=== PATIENT | female | born 1975 | race Caucasian/White ===

== ENCOUNTER 2018-06-15 19:06 | Emergency (ER) | payer MEDICAID ==
[~2018-06-15] VITALS: Ht 165.1 cm; Wt 84.4 kg
--- NOTE | 2018-06-15 19:30 | NUR ---
ED Nurse Note: Pt walked in c/o n/v x 5 day, pt states she ate some bad nachos about 4-5 days ago but continued to have n/v, denies diarrhea. pt states her menstrual cycle started today and reports she has nausea at this time. pt AA&ox4, gcs=15, skin warm and dry, resp even and unlabored, +n, -v/d, ambulates w/ steady gait, will cont monitor.
--- NOTE | 2018-06-15 19:32 | Emergency Room Report ---
History of Present Illness General Chief Complaint: Vomiting Source: Patient Present Illness HPI This is a 43-year-old female complains of nausea and episodes of vomiting last 5 days. She denies any abdominal pain. She does complain of some vaginal spotting. She denies any urinary symptoms. No diarrhea. No fever. No exacerbating or relieving factor. Allergies: Coded Allergies: No Known Allergies (Unverified , 06/15/18) Patient History Past Medical History: none Past Surgical History: none Pertinent Family History: none Last Menstrual Period: 05/08/2018 Now: No : 3 Para: 2 Nursing Documentation-[facility] Past Medical History: No Stated History Review of Systems All Other Systems: negative except mentioned in HPI Physical Exam Vital Signs Date Time Temp Pulse Resp B/P (MAP) Pulse Ox O2 Delivery O2 Flow Rate FiO2 06/15/18 19:22 98.2 68 16 137/92 99 Room Air General Appearance: well appearing, no apparent distress Head: normocephalic, atraumatic ENT: hearing grossly normal, normal voice Neck: full range of motion, supple Respiratory: normal breath sounds, no respiratory distress, speaking full sentences Gastrointestinal: normal inspection, normal bowel sounds, non tender, soft, no peritonitis Musculoskeletal: normal inspection, back normal Neurologic: normal inspection, alert, oriented x3, responsive Skin: normal inspection, no rash Medical Decision Making Diagnostic Impression: Primary Impression: Vomiting ER Course Patient has had multiple bedside evaluations. Patient is nontoxic-appearing. The patient has no abdominal tenderness on my initial examination and repeat examination. She is afebrile. Metabolic abnormality was considered, unlikely after reviewing the patient's blood work. The patient was given Zofran and Reglan for her vomiting. She has improved. She is afebrile. Appendicitis was considered, unlikely. I also consider cholangitis, cholecystitis, pancreatitis , early . She has no vaginal bleeding. Laboratory Tests Test 06/15/18 14:33 06/15/18 19:41 Urine Color Pale yellow Urine Appearance Clear Urine pH 6.5 (4.5-8.0) Urine Specific [place] 1.000 (1.005-1.035) Urine Protein Negative (NEGATIVE) Urine Glucose (UA) Negative (NEGATIVE) Urine Ketones Negative (NEGATIVE) Urine Blood Negative (NEGATIVE) Urine Nitrite Negative (NEGATIVE) Urine Bilirubin Negative (NEGATIVE) Urine Urobilinogen Normal MG/DL (0.0-1.0) Urine Leukocyte Esterase Negative (NEGATIVE) White Blood Count 9.8 K/UL (4.8-10.8) Red Blood Count 4.51 M/UL (4.20-5.40) Hemoglobin 14.3 G/DL (12.0-16.0) Hematocrit 42.5 % (37.0-47.0) Mean Corpuscular Volume 94 FL (80-99) Mean Corpuscular Hemoglobin 31.6 PG (27.0-31.0) H Mean Corpuscular Hemoglobin Concent 33.6 G/DL (32.0-36.0) Red Cell Distribution Width 12.2 % (11.6-14.8) Platelet Count 595 K/UL (150-450) H Mean Platelet Volume 4.7 FL (6.5-10.1) L Neutrophils (%) (Auto) 51.7 % (45.0-75.0) Lymphocytes (%) (Auto) 37.1 % (20.0-45.0) Monocytes (%) (Auto) 7.1 % (1.0-10.0) Eosinophils (%) (Auto) 0.9 % (0.0-3.0) Basophils (%) (Auto) 3.2 % (0.0-2.0) H Sodium Level 138 MMOL/L (136-145) Potassium Level 3.8 MMOL/L (3.5-5.1) Chloride Level 101 MMOL/L (98-107) Carbon Dioxide Level 26 MMOL/L (21-32) Anion Gap 11 mmol/L (5-15) Blood Urea Nitrogen 6 mg/dL (7-18) L Creatinine 0.9 MG/DL (0.55-1.30) Estimate Glomerular Filtration Rate > 60 mL/min (>60) Glucose Level 108 MG/DL (74-106) H Calcium Level 9.5 MG/DL (8.5-10.1) Total Bilirubin 0.3 MG/DL (0.2-1.0) Aspartate Amino Transferase (AST) 9 U/L (15-37) L Alanine Aminotransferase (ALT) 12 U/L (12-78) Alkaline Phosphatase 68 U/L (46-116) Total Protein 7.0 G/DL (6.4-8.2) Albumin 3.6 G/DL (3.4-5.0) Globulin 3.4 g/dL Albumin/Globulin Ratio 1.1 (1.0-2.7) Lipase 95 U/L (73-393) Human Chorionic Gonadotropin, Quant < 1 mIU/mL (1-6) L Last Vital Signs Date Time Temp Pulse Resp B/P (MAP) Pulse Ox O2 Delivery O2 Flow Rate FiO2 06/15/18 19:22 98.2 68 16 137/92 99 Room Air Status: improved Disposition: HOME, SELF-CARE Condition: Improved Scripts Ondansetron (Zofran) 4 Mg Tablet 4 MG ORAL Q6H PRN for Nausea & Vomiting, #10 TAB Prov: VERONICA COTTON 06/15/18 Patient Instructions: Nausea and Vomiting, Adult VERONICA COTTON Jun 15, 2018 19:32
--- NOTE | 2018-06-15 19:40 | NUR ---
ED Nurse Note: blanket provided for comfort.
[2018-06-15 20:10] LABS: BASOPHILS % (AUTO) 3.2 % (0.0-2.0); EOSINOPHILS % (AUTO) 0.9 % (0.0-3.0); HEMATOCRIT 42.5 % (37.0-47.0); HEMOGLOBIN 14.3 G/DL (12.0-16.0); LYMPHOCYTES % (AUTO) 37.1 % (20.0-45.0); MEAN CORPUSCULAR VOLUME 94 FL (80-99); MONOCYTES % (AUTO) 7.1 % (1.0-10.0); NEUTROPHILS % (AUTO) 51.7 % (45.0-75.0); PLATELET COUNT 595 K/UL (150-450); RED BLOOD COUNT 4.51 M/UL (4.20-5.40); RED CELL DISTRIBUTION WIDTH 12.2 % (11.6-14.8); WHITE BLOOD COUNT 9.8 K/UL (4.8-10.8)
--- NOTE | 2018-06-15 20:10 | NUR ---
ED Nurse Note: pt vomiting at this time, only clear liquid, ermd notified.
[2018-06-15 20:14] LABS: ANION GAP 11 mmol/L (5-15); BLOOD UREA NITROGEN 6 mg/dL (7-18); CALCIUM 9.5 MG/DL (8.5-10.1); CARBON DIOXIDE 26 MMOL/L (21-32); CHLORIDE 101 MMOL/L (98-107); CREATININE 0.9 MG/DL (0.55-1.30); POTASSIUM 3.8 MMOL/L (3.5-5.1); SODIUM 138 MMOL/L (136-145)
[2018-06-15] MEDS ORDERED: Metoclopramide 10mg/2ml Inj IVP ONE (20:15)
[2018-06-15 20:19] LABS: ALANINE AMINOTRANSFERASE 12 U/L (12-78); ALBUMIN 3.6 G/DL (3.4-5.0); ALBUMIN/GLOBULIN RATIO 1.1 (1.0-2.7); ALKALINE PHOSPHATASE 68 U/L (46-116); ASPARTATE AMINO TRANSFERASE 9 U/L (15-37); BILIRUBIN,TOTAL 0.3 MG/DL (0.2-1.0)
[2018-06-15 20:21] LABS: APPEARANCE,URINE CLEAR; BILIRUBIN, URINE NEGATIVE (NEGATIVE); COLOR,URINE PALE YELLOW; GLUCOSE, URINE (UA) NEGATIVE (NEGATIVE); KETONES,URINE NEGATIVE (NEGATIVE); LEUKOCYTE ESTERASE ,URINE NEGATIVE (NEGATIVE); NITRITE,URINE NEGATIVE (NEGATIVE); PH,URINE 6.5 (4.5-8.0); PROTEIN,URINE NEGATIVE (NEGATIVE); UROBILINOGEN,URINE NORMAL MG/DL (0.0-1.0)
[2018-06-15 20:22] VITALS: BP 122/93
--- NOTE | 2018-06-15 20:47 | NUR ---
ED Nurse Note: pt reports nausea is better with medication, pt resting comfortably vss, nsr, o2sat 100% on RA, will cont monitor, spouse member at bedside. pt advised to notify staff if needed assist.
[2018-06-15 21:00] VITALS: BP 154/93
--- NOTE | 2018-06-15 21:10 | NUR ---
ED Nurse Note: pt currently sleeping, per ermd order, when pt wake up will try po eval.
[2018-06-15] MEDS ORDERED: ZOFRAN4 M1 ORAL (21:17)
--- NOTE | 2018-06-15 21:40 | NUR ---
ED Nurse Note: PO challenge done per ERMD order, pt tolerated well, no n/v. ERMD notified
--- NOTE | 2018-06-15 21:48 | NUR ---
ED Nurse Note: pt discharge instruction provided w/prescription, pt education done via discussion and handout, pt iv d/c and dressing applied, wristband removed, pt advised to follow up with pcp or return to ed if s/s worsen or new s/s develop. pt verbalized understanding and agrees with plan. pt ambulatory w/ steady gait, vss, airway intact, resp even and unlabored.
[2018-06-15 21:50] VITALS: BP 150/83
== END 2018-06-15 21:51 | disposition home or self-care (01) ==
LOC: EMR 19:56
DX: R11.2 Nausea with vomiting, unspecified (principal)
CPT/HCPCS: 36415; 80053; 81003; 83690; 84702; 85025; 96361; 96374; 96375; 99284; J2405; J2765

== ENCOUNTER 2019-11-01 17:02 | Emergency (ER) | payer MEDICAID ==
[~2019-11-01] VITALS: Ht 165.1 cm; Wt 86.2 kg
[~2019-11-01 17:02] MED LIST: ZOFRAN4 M1 ORAL
[2019-11-01 18:05] VITALS: BP 132/92
--- NOTE | 2019-11-01 18:47 | Emergency Room Report ---
History of Present Illness General Chief Complaint: Female Urogenital Problems Source: Patient (Hallie Segura) Present Illness HPI 44-year-old female with no significant past medical history here complaining of 2 weeks of vaginal bleeding and clotting. Patient reports that 4 months ago she had a biopsy done on left ovary and benign lesions were removed patient has not follow-up with [employer] since. Patient reports that her periods have always been irregular and patient did not have a period for 2 months. Patient never got it about a month ago however started spotting after. Patient took a home test which was positive and took it again 2 days later and it was negative. Patient also reports in the past 2 weeks she has been profusely bleeding clotting changing a tampon every hour. Denies any dizziness, syncope, headache, fatigue, chest pain, shortness of breath, and other associate symptoms. Denies diffuse abdominal pain. Denies nausea vomiting diarrhea. Sitting comfortably with stable vital signs. Is afebrile. Denies tobacco smoke , marijuana use, alcohol intake (Hallie Segura) Allergies: Coded Allergies: No Known Allergies (Unverified , 06/15/18) COVID-19 Screening Contact w/high risk pt: No Recent Travel to affected area: No Experienced COVID-19 symptoms?: No COVID-19 Testing performed [employer]: No (Hallie Segura) Patient History Past Medical History: see triage record Past Surgical History: none Pertinent Family History: none Last Menstrual Period: now Now: No Immunizations: UTD Reviewed Nursing Documentation: PMH: Agreed; PSxH: Agreed (Hallie Segura) Nursing Documentation-PMH Past Medical History: No Stated History (Hallie Segura) Review of Systems All Other Systems: negative except mentioned in HPI (Hallie Segura) Physical Exam Vital Signs Date Time Temp Pulse Resp B/P (MAP) Pulse Ox O2 Delivery O2 Flow Rate FiO2 11/01/19 17:16 98.6 78 20 132/92 (105) 99 Room Air Sp02 EP Interpretation: reviewed, normal General Appearance: no apparent distress, alert, GCS 15, non-toxic Head: normocephalic, atraumatic Eyes: bilateral eye normal inspection, bilateral eye PERRL ENT: hearing grossly normal, normal pharynx, no angioedema, normal voice Neck: full range of motion, supple/symm/no masses Respiratory: chest non-tender, lungs clear, normal breath sounds, no rhonchi, speaking full sentences Cardiovascular #1: regular rate, rhythm, no edema, no murmur Gastrointestinal: normal bowel sounds, non tender, soft, no mass, no peritonitis, non-distended, no guarding, no rebound Rectal: deferred Genitourinary: no CVA tenderness Musculoskeletal: back normal, no calf tenderness Neurologic: alert, motor strength/tone normal, oriented x3, sensory intact, responsive, speech normal Psychiatric: judgement/insight normal, memory normal, mood/affect normal, no suicidal/homicidal ideation Skin: no rash, palpation normal Lymphatic: no adenopathy (Hallie Segura) Medical Decision Making PA Attestation All my diagnosis and treatment plans were reviewed ad discussed with my supervising physician Dr. Casas (Hallie Segura) Diagnostic Impression: Primary Impression: Dysfunctional uterine bleeding Additional Impression: Hemorrhagic cyst ER Course 44-year-old female with no significant past medical history here complaining of 2 weeks of vaginal bleeding and clotting. Patient reports that 4 months ago she had a biopsy done on left ovary and benign lesions were removed patient has not follow-up with [employer] since. Patient reports that her periods have always been irregular and patient did not have a period for 2 months. Patient never got it about a month ago however started spotting after. Patient took a home test which was positive and took it again 2 days later and it was negative. Patient also reports in the past 2 weeks she has been profusely bleeding clotting changing a tampon every hour. Denies any dizziness, syncope, headache, fatigue, chest pain, shortness of breath, and other associate symptoms. Denies diffuse abdominal pain. Denies nausea vomiting diarrhea. Sitting comfortably with stable vital signs. Is afebrile. Denies tobacco smoke , marijuana use, alcohol intake Ddx considered but are not limited to: Ovarian cyst, ovarian carcinoma, uterine fibroids, abnormal uterine bleeding, intrauterine , threatened , spontaneous , complete , ectopic Vital signs: are WNL, pt. is afebrile H&PE are most consistent with: Dysfunctional uterine bleeding ORDERS: UA, urine cx, CBC, CMP, PT and PTT, beta-hCG, ED INTERVENTIONS: NS bolus I signed out the patient to Dr. Casas at 7PM DISCHARGE: At this time pt. is stable for d/c to home. Will provide printed patient care instructions, and any necessary prescriptions. Care plan and follow up instructions have been discussed with the patient prior to discharge. (Hallie Segura) ER Course Please refer to the initial note for the history exam and presentation Patient's ultrasound was pending at this time there was evidence of a cyst on the right side The appearance suggest possible hemorrhagic in nature Patient's discomfort was mainly on the left side however also had complained of abnormal menstrual cycles And heavier bleeding than usual patient is hemoglobin comes back normal Urine sample does not show any signs of infectious process And patient at this time is stable for outpatient follow-up Labs Test 11/01/19 18:40 White Blood Count 9.7 K/UL (4.8-10.8) Red Blood Count 4.37 M/UL (4.20-5.40) Hemoglobin 13.4 G/DL (12.0-16.0) Hematocrit 43.4 % (37.0-47.0) Mean Corpuscular Volume 99 FL (80-99) Mean Corpuscular Hemoglobin 30.6 PG (27.0-31.0) Mean Corpuscular Hemoglobin Concent 30.9 G/DL (32.0-36.0) Red Cell Distribution Width 13.8 % (11.6-14.8) Platelet Count 600 K/UL (150-450) Mean Platelet Volume 5.4 FL (6.5-10.1) Neutrophils (%) (Auto) 57.4 % (45.0-75.0) Lymphocytes (%) (Auto) 31.3 % (20.0-45.0) Monocytes (%) (Auto) 6.8 % (1.0-10.0) Eosinophils (%) (Auto) 0.5 % (0.0-3.0) Basophils (%) (Auto) 4.0 % (0.0-2.0) Prothrombin Time 10.5 SEC (9.30-11.50) Prothromb Time International Ratio 0.9 (0.9-1.1) Activated Partial Thromboplast Time 27 SEC (23-33) Urine Color Pale yellow Urine Appearance Clear Urine pH 7 (4.5-8.0) Urine Specific [place] 1.005 (1.005-1.035) Urine Protein Negative (NEGATIVE) Urine Glucose (UA) Negative (NEGATIVE) Urine Ketones Negative (NEGATIVE) Urine Blood 5+ (NEGATIVE) Urine Nitrite Negative (NEGATIVE) Urine Bilirubin Negative (NEGATIVE) Urine Urobilinogen Normal MG/DL (0.0-1.0) Urine Leukocyte Esterase Negative (NEGATIVE) Urine RBC 15-20 /HPF (0 - 2) Urine WBC 0 /HPF (0 - 2) Urine Squamous Epithelial Cells None /LPF (NONE/OCC) Urine Bacteria Occasional /HPF (NONE) Urine HCG, Qualitative Negative (NEGATIVE) Sodium Level 140 MMOL/L (136-145) Potassium Level 4.1 MMOL/L (3.5-5.1) Chloride Level 105 MMOL/L (98-107) Carbon Dioxide Level 22 MMOL/L (21-32) Anion Gap 13 mmol/L (5-15) Blood Urea Nitrogen 11 mg/dL (7-18) Creatinine 0.9 MG/DL (0.55-1.30) Estimat Glomerular Filtration Rate > 60 mL/min (>60) Glucose Level 104 MG/DL (74-106) Calcium Level 8.6 MG/DL (8.5-10.1) Total Bilirubin 0.3 MG/DL (0.2-1.0) Aspartate Amino Transf (AST/SGOT) 14 U/L (15-37) Alanine Aminotransferase (ALT/SGPT) 16 U/L (12-78) Alkaline Phosphatase 78 U/L (46-116) Total Protein 6.9 G/DL (6.4-8.2) Albumin 3.6 G/DL (3.4-5.0) Globulin 3.3 g/dL Albumin/Globulin Ratio 1.1 (1.0-2.7) (Shira Casas DO) CT/MRI/US Diagnostic Results CT/MRI/US Diagnostic Results : Imaging Test Ordered: Abdominal pelvic ultrasound (Hallie Segura) CT/MRI/US Diagnostic Results : Impression Pelvic ultrasoundIMPRESSION: A 5 cm complex right ovarian cyst has imaging features suggestive of a hemorrhagic cyst. There is normal vascular flow in the right ovary. The left ovary was not visualized and may be surgically absent. (Shira Casas DO) Last Vital Signs Date Time Temp Pulse Resp B/P (MAP) Pulse Ox O2 Delivery O2 Flow Rate FiO2 11/01/19 18:05 98.6 20 132/92 99 Room Air 11/01/19 17:16 78 (Hallie Segura) Status: improved (Shira Casas DO) Disposition: HOME, SELF-CARE Condition: Improved Additional Instructions: Patient is provided with the discharge instructions notified to follow up with primary doctor in the next 2-3 days otherwise return to the er with any worsening symptoms. Please note that this report is being documented using DRAGON technology. This can lead to erroneous entry secondary to incorrect interpretation by the dictating instrument. Hallie Segura Nov 01, 2019 18:47 Shira Casas DO Nov 01, 2019 19:56
[2019-11-01 18:57] LABS: EOSINOPHILS % (AUTO) 0.5 % (0.0-3.0); HEMATOCRIT 43.4 % (37.0-47.0); HEMOGLOBIN 13.4 G/DL (12.0-16.0); LYMPHOCYTES % (AUTO) 31.3 % (20.0-45.0); MEAN CORPUSCULAR VOLUME 99 FL (80-99); MONOCYTES % (AUTO) 6.8 % (1.0-10.0); NEUTROPHILS % (AUTO) 57.4 % (45.0-75.0); PLATELET COUNT 600 K/UL (150-450); RED BLOOD COUNT 4.37 M/UL (4.20-5.40); RED CELL DISTRIBUTION WIDTH 13.8 % (11.6-14.8); WHITE BLOOD COUNT 9.7 K/UL (4.8-10.8)
[2019-11-01 18:59] LABS: APPEARANCE,URINE CLEAR; BILIRUBIN, URINE NEGATIVE (NEGATIVE); COLOR,URINE PALE YELLOW; GLUCOSE, URINE (UA) NEGATIVE (NEGATIVE); KETONES,URINE NEGATIVE (NEGATIVE); LEUKOCYTE ESTERASE ,URINE NEGATIVE (NEGATIVE); NITRITE,URINE NEGATIVE (NEGATIVE); PH,URINE 7 (4.5-8.0); PROTEIN,URINE NEGATIVE (NEGATIVE); UROBILINOGEN,URINE NORMAL MG/DL (0.0-1.0)
[2019-11-01 19:08] LABS: ANION GAP 13 mmol/L (5-15); BLOOD UREA NITROGEN 11 mg/dL (7-18); CALCIUM 8.6 MG/DL (8.5-10.1); CARBON DIOXIDE 22 MMOL/L (21-32); CHLORIDE 105 MMOL/L (98-107); CREATININE 0.9 MG/DL (0.55-1.30); POTASSIUM 4.1 MMOL/L (3.5-5.1); SODIUM 140 MMOL/L (136-145)
[2019-11-01 19:13] LABS: ALANINE AMINOTRANSFERASE 16 U/L (12-78); ALBUMIN 3.6 G/DL (3.4-5.0); ALBUMIN/GLOBULIN RATIO 1.1 (1.0-2.7); ALKALINE PHOSPHATASE 78 U/L (46-116); ASPARTATE AMINO TRANSFERASE 14 U/L (15-37); BILIRUBIN,TOTAL 0.3 MG/DL (0.2-1.0)
--- NOTE | 2019-11-01 19:15 | Diagnostic Imaging Report ---
EXAM: US Pelvis Transabdominal, Complete CLINICAL HISTORY: PAIN TECHNIQUE: Real-time complete transabdominal pelvic ultrasound with image documentation. COMPARISON: No relevant prior studies available. FINDINGS: Uterus/cervix: Uterus measures 10.2 x 5.7 x 4.7 cm. Small cervical nabothian cysts. 2.1 cm subserosal fibroid in the anterior uterine corpus. Endometrium measures 8 mm. Right ovary: Unremarkable in size and appearance, measuring 4.6 x 4.8 x 3.1 cm. 5 cm heterogeneous avascular cystic structure in the right ovary with low-level lacelike internal echoes. No adnexal mass. Normal blood flow. Left ovary: Not visualized. No adnexal mass. Free fluid: No free fluid. Bladder: Unremarkable as visualized. IMPRESSION: A 5 cm complex right ovarian cyst has imaging features suggestive of a hemorrhagic cyst. There is normal vascular flow in the right ovary. The left ovary was not visualized and may be surgically absent.
[2019-11-01 19:19] LABS: INR 0.9 (0.9-1.1)
[2019-11-01 19:41] VITALS: BP 129/86
--- NOTE | 2019-11-08 15:53 | Diagnostic Imaging Report ---
Indication: Reason For Exam: PAIN Technique: Transabdominal and endovaginal ultrasound of the pelvis Comparison: None. Findings: Uterus measures 13.7 x 5.3 x 7.7 cm. Endometrial thickness is 8 mm. A hypoechoic mass measuring approximately 2 cm is noted in the anterior uterine body. Right ovary measures 5.1 x 3.8 x 3.9 cm. Numerous lacelike structures are noted throughout the right ovary, likely representing cyst sandoval. Left ovary is surgically absent.. Impression: Enlarged right ovary with probable multiple cysts. The possibility of a polycystic ovary might be considered. MRI may be helpful for better evaluation. Enlarged uterus with small fibroid. Surgical absence of the left ovary.
== END 2019-11-01 19:41 | disposition home or self-care (01) ==
LOC: EMR 19:04
DX: N93.8 Other specified abnormal uterine and vaginal bleeding (principal); N83.201 Unspecified ovarian cyst, right side; N88.8 Other specified noninflammatory disorders of cervix uteri; D25.2 Subserosal leiomyoma of uterus
CPT/HCPCS: 36415; 76830; 76856; 80053; 81003; 81025; 85025; 85610; 85730; 96360; J7030; Z7502; 99284